=== PATIENT | female | born 1960 ===

== ENCOUNTER 2024-10-31 08:10 | Observation (INO) ==
[~2024-10-31 08:10] MED LIST: Lidocaine 1% w EPI 1:200,000 SDV 30 ML VIAL ONE; Lidocaine 2% PF 5 ML VIAL ONE; Midazolam 2 mg/2 ml VIAL 1 mg/ml 2 ml VIAL (2 mg) ONE; NS 0.45% 1000 ml BAG 1,000 ML IV SCH; Naloxone 0.4 mg VIAL 0.4 mg/ml 1 ml VIAL IV PRN; Ondansetron 4 mg VIAL 2 MG/ML 2 ml VIAL IV PRN; Propofol 10 MG/ML 20 ML BTL ONE; Rocuronium 50 mg VIAL 10 mg/ml 5 ml VIAL (50 mg) ONE; ceFAZolin VIAL VIAL ONE; fentaNYL 100 mcg/2 ml 50 MCG/ML VIAL ONE
[2024-10-31] MEDS ORDERED: ceFAZolin 2 GM PREMIX 2 GM/50 ML BAG ONE (08:24)
[2024-10-31 08:58] LABS: Rapid COVID-19 Molecular Undetected (Undetected)
[2024-10-31] MEDS ORDERED: Midazolam 2 mg/2 ml VIAL 1 mg/ml 2 ml VIAL (2 mg) ONE (09:49)
[2024-10-31] MEDS ORDERED: fentaNYL 100 mcg/2 ml 50 MCG/ML VIAL ONE ×3 (09:49→12:02)
[2024-10-31] MEDS ORDERED: Ondansetron 4 mg VIAL 2 MG/ML 2 ml VIAL ONE ×2 (10:42→12:42)
[2024-10-31] MEDS ORDERED: Dexamethasone IV 4 MG/ML VIAL 1 ml VIAL ONE ×2 (10:42→12:42)
[2024-10-31] MEDS ORDERED: Ondansetron 4 mg VIAL 2 MG/ML 2 ml VIAL IV PRN (11:36)
[2024-10-31] MEDS ORDERED: Senna TAB 8.6 mg TAB PO PRN (11:36)
[2024-10-31] MEDS ORDERED: Morphine 2 MG/ML SYRINGE IV PRN (11:36)
[2024-10-31] MEDS ORDERED: Dextran 70/Hypromellose Tears Eye Drops 15 ml BTL (for Artificials Tears) BOTH EYES PRN (11:36)
[2024-10-31] MEDS ORDERED: Calcium Carb (TUMS) 500 mg CHEW TAB PO PRN (11:36)
[2024-10-31] MEDS ORDERED: Benzocaine/Menthol LOZ MT PRN (11:36)
[2024-10-31] MEDS ORDERED: Phenol 1.4% Throat Spray BTL MT PRN (11:36)
[2024-10-31] MEDS ORDERED: Albuterol HFA INHALER 8 gm MDI INH PRN (11:39)
[2024-10-31] MEDS: fentaNYL 100 mcg/2 ml 50 MCG/ML VIAL IV PRN (12:06)
[2024-10-31] MEDS ORDERED: Rocuronium 50 mg VIAL 10 mg/ml 5 ml VIAL (50 mg) ONE (12:58)
[2024-10-31] MEDS ORDERED: Ondansetron ODT 4 mg TAB 4 MG TAB PO PRN (13:59)
[2024-10-31] MEDS: Buffered Lidocaine 1% SYRIN 1 ml INTRADERM ONE (14:37)
[2024-10-31] MEDS: Nicotine PATCH 21 MG/24 HR PATCH TRANSDERM SCH (14:42)
[2024-10-31] MEDS: Lactated Ringers 1000 ml BAG 1,000 ML IV SCH ×2 (15:08→15:59)
[2024-10-31] MEDS: FLUTICAS/UMECLI/VILANT 200-62.5-25 MDI (NF) INH SCH (15:59)
[2024-11-01] MEDS: Simvastatin 20 mg TAB (NF) PO SCH (08:44)
[2024-11-01 10:42] VITALS: BP 134/74
== END 2024-11-01 11:35 | disposition home or self-care (01) ==
LOC: OR 08:10 → SSU 08:10
PROVIDERS: ADMIT Neurological Surgery; ATTEND Neurological Surgery